=== PATIENT | male | born 1940 | race Caucasian/White ===

== ENCOUNTER 2018-02-15 06:41 | Day surgery (SDC) | payer MEDICARE, MEDICAID ==
[2018-01-13 11:21] VITALS: BP 132/70
[~2018-02-15] VITALS: Ht 185.4 cm; Wt 80.4 kg
[~2018-02-15 06:41] MED LIST: ACET-1757 PO; APIX2.5T PO; APIX5TAB PO; ATOR10TA9 PO; BISA10SU2 PR; CHOL100011 PO; CITA20TA5 PO; CLOP75TA PO; DOCU100T3 PO; FENO43CA3 PO; FINA5TAB4 PO; FURO-92 PO; IPRA3AMP PO; ISOS20TA3 PO; LEVO500T47 PO; LORA10TA3 PO; MEMA10TA PO; NITR0.4T28 SL; OXYB5TAB7 PO; POLY17PO18 PO; POTA20TA6 PO; RISP2TAB3 PO; SENN-87 PO; SOTA120T26 PO; SULF1TAB24 PO; TAMS0.4C2 PO; WARF1TAB PO; ZOLP-413 PO
[2018-02-15] MEDS ORDERED: LACTATED RINGERS 1,000 ML IV SCH (07:24)
[2018-02-15 07:28] VITALS: BP 132/70
[2018-02-15] MEDS ORDERED: LIDOCAINE-MPF 1%, 2ML INFIL ONE (07:30)
[2018-02-15] MEDS ORDERED: CIPR500T3 PO (07:34)
[2018-02-15] MEDS ORDERED: DOCU-131 PO (07:34)
[2018-02-15] MEDS ORDERED: OXYB10TA PO (07:34)
[2018-02-15] MEDS ORDERED: CYAN500L4 PO (07:34)
[2018-02-15] MEDS ORDERED: CHOL200040 PO (07:34)
[2018-02-15] MEDS ORDERED: CALC-322 PO (07:34)
[2018-02-15] MEDS ORDERED: FENTANYL PF 100 MCG/2ML ONE (08:04)
[2018-02-15] MEDS ORDERED: LIDOCAINE-MPF 2% ,5ML ONE (08:05)
[2018-02-15] MEDS ORDERED: MIDAZOLAM 1 MG/ML, 2ML ONE (08:05)
[2018-02-15] MEDS ORDERED: PROPOFOL 10 MG/ML, 20ML ONE (08:05)
[2018-02-15] MEDS ORDERED: CEFAZOLIN 1,000 MG ONE ×2 (08:07)
[2018-02-15] MEDS ORDERED: WATER-INJECTION,STERILE 10 ML IV ONE (08:07)
[2018-02-15] MEDS ORDERED: GENTAMICIN 80 MG/2 ML ONE (08:51)
[2018-02-15] MEDS ORDERED: DEXAMETHASONE 4 MG/ML, 1ML ONE ×2 (08:53)
[2018-02-15] MEDS ORDERED: EPINEPHRINE 1 MG/ML, 1ML ONE (09:09)
[2018-02-15] MEDS ORDERED: BUPIVACAINE/PF 0.25% ONE (09:09)
[2018-02-15] MEDS ORDERED: MEPERIDINE/PF 25MG/0.5ML IVPush PRN (09:30)
[2018-02-15] MEDS ORDERED: OXYcodone 5 MG/5 ML ORAL.SOL UDC PO PRN (09:30)
[2018-02-15] MEDS ORDERED: hydrALAzine 20 MG/ML, 1ML IV PRN (09:30)
[2018-02-15] MEDS ORDERED: HYDROmorphone 1 MG/ML, 1ML IV PRN (09:30)
[2018-02-15] MEDS ORDERED: ACETAMINOPHEN 325 MG TABLET PO PRN (09:30)
[2018-02-15] MEDS ORDERED: LABETALOL 5MG/ML, 20ML IV PRN (09:30)
[2018-02-15] MEDS ORDERED: ALBUTEROL/IPRATROPIUM 2.5MG/0.5MG, 3 ML NPPB PRN (09:30)
[2018-02-15] MEDS ORDERED: HALOPERIDOL 5 MG/ML IV PRN (09:30)
[2018-02-15] MEDS ORDERED: FENTANYL PF 100 MCG/2ML IV PRN (09:30)
[2018-02-15] MEDS ORDERED: ACETAMINOPHEN 650 MG/20.3 ML UDC ONE (10:21)
== END 2018-02-15 12:35 ==
LOC: OUT 06:41
PROVIDERS: ATTEND Urology
DX: R33.9 Retention of urine, unspecified (principal); F03.90 Unspecified dementia, unspecified severity, without behavioral disturbance, psychotic disturbance, mood disturbance, and anxiety; K21.9 Gastro-esophageal reflux disease without esophagitis; J44.9 Chronic obstructive pulmonary disease, unspecified; Z87.440 Personal history of urinary (tract) infections; Z95.0 Presence of cardiac pacemaker; Z88.8 Allergy status to other drugs, medicaments and biological substances
CPT/HCPCS: 51040; 93005; J0171; J0690; J1100; J1580; J2250; J2704; J3010; J3490